=== PATIENT | male | born 1975 | race Caucasian/White ===

== ENCOUNTER 2020-04-09 13:03 | Emergency (ER) | payer OTHER, SELFPAY ==
[2020-04-09 13:39] VITALS: BP 136/80; PULSE 67; RESP 18; TEMP 36.7; O2SAT 98; BMI 39.5
--- NOTE | 2020-04-09 13:46 | HMH.EDUTC ---
[facility] Disposition Clinical Impression: Exposure to COVID-19 virus Disposition: Home, Self-Care Condition on Discharge: Good Instructions: Preventing the Spread of Coronavirus Discharge Instructions Additional Instructions: Drink plenty of fluids. Take tylenol for pain or fever. Return if you begin to have difficulty breathing. Follow up with your regular doctor. GO TO THE ER FOR ANY WORSENING SYMPTOMS Referrals: Alice Calix APRN [Primary Care Provider] - Forms: Work/School Release Medical Decision Making - Medical Records Medical records reviewed: No: I reviewed the patient's medical records. - Cecilio Inquiry Pt receiving controlled substance: No Vital Signs: 04/09/20 13:39 Temperature 98.1 F Temperature Source Oral Pulse Rate [Radial] 67 Respiratory Rate 18 Blood Pressure [Right Arm] 136/80 Blood Pressure Mean [Right Arm] 98 Blood Pressure Source [Right Arm] Automatic Cuff Blood Pressure Position [Right Arm] Sitting 02 Sat by Pulse Oximetry 98 Oxygen Delivery Method Room Air Orders (Tests/Meds): ORDERS Category Date Time Status Covid-19 Nasal PCR ([facility]) Routine Lab 04/09/20 13:[address] [facility] HPI - General Stated complaint: Covid exposure Time Seen by Provider: 04/09/20 13:47 Mode of Arrival: Ambulatory Source of Information: Patient Limitations: No Limitations Description of Symptoms (Recalled from Triage Doc. by RN): covid test HEENT Symptoms (Recalled from RN notes): No Resp Symptoms (Recalled from RN notes): No Skin Symptoms (Recalled from RN notes): No MS Symptoms (Recalled from RN notes): No Functional Status (Recalled from RN notes): wnl - History of Present Illness Provider Complaint: His daughter tested positive for covid yesterday. He needs to be tested. He denies any symptoms so far. - Related Data Home Medications Medication Instructions Recorded Confirmed Amlodipine Besylate 10 mg PO DAILY 07/11/19 07/13/19 Losartan Potassium 100 mg PO DAILY 07/11/19 07/13/19 Pravastatin Sodium [Pravachol 40mg 40 mg PO HS 07/11/19 07/13/19 Tablet] carvediloL [Carvedilol 25mg Tab] 25 mg PO DAILY 07/11/19 07/13/19 hydroCHLOROthiazide 12.5 mg PO BID 07/11/19 07/13/19 [Hydrochlorothiazide 12.5mg Tab] Previous Rx's Medication Instructions Recorded Hydrocod/Acet 5/325 mg [Dickens 1 tab PO Q6HP PRN #8 tab 07/11/19 5/325mg tablet] Allergies Allergy/AdvReac Type Severity Reaction Status Date / Time No Known Allergies Allergy Verified 07/13/19 10:54 - Worker's Comp Is this a Worker's Comp case?: No [facility] History - Hepatitis A Screen Drug use history?: No High risk sexual behaviors?: No History of sexually transmitted infection?: No Currently employed?: No Childcare worker?: No Do you have indoor plumbing?: Yes Do you have electricity?: Yes Attestation statement:: This patient has been screened for Hepatitis A risk factors. I have reviewed the patient's past medical history: Yes Medical History: Reports:: Hyperlipidemia, Hypertension, Kidney Stones Denies:: Diabetes Mellitus Type 1, Diabetes Mellitus Type 2 Laterality Cases: Bilateral: Tonsillectomy Amputation: No Fractures: No Comment: vasectomy - Social History Smoking Status: Never smoker Alcohol Intake: never Substance Use Type: denies use Occupational Status: employed Housing: house Household Members: family ROS Obtained: Yes All systems reviewed & no additional complaints - Constitutional Constitutional: Reports system reviewed and no additional complaints, except as docu - Eyes Eyes: Reports system reviewed and no additional complaints, except as docu - ENT Ears, Nose, Mouth, and Throat: Reports system reviewed and no additional complaints, except as docu - Cardiovascular Cardiovascular: Reports system reviewed and no additional complaints, except as docu - Respiratory Respiratory: Yes system reviewed and no additional complaints, except as
[2020-04-09 14:09] VITALS: BP 136/80; PULSE 67; RESP 18; TEMP 36.7; O2SAT 98
== END 2020-04-09 14:10 | disposition home or self-care (01) ==
PROVIDERS: Emergency Provider Nurse Practitioner Family; PCP Nurse Practitioner
DX: Z20.828 Contact with and (suspected) exposure to other viral communicable diseases (principal)
CPT/HCPCS: 99201; U0003

== ENCOUNTER → 2021-05-21 19:41 | Outpatient (CLI) | payer OTHER, SELFPAY | PROVIDERS: Visit Provider Nurse Practitioner Family | DX: Z20.822 Contact with and (suspected) exposure to COVID-19 (principal); J02.9 Acute pharyngitis, unspecified | CPT/HCPCS: C9803; U0003; U0005 ==

== ENCOUNTER → 2022-08-24 16:59 | Outpatient (CLI) | payer OTHER, SELFPAY ==
[2022-08-24 17:23] LABS: Alanine Aminotransferase 35 U/L (12-78); Albumin Level 4.3 g/dl (3.5-5.0); Albumin/Globulin Ratio 1.4 (1.1-1.8); Alkaline Phosphatase 68 U/L (38-126); Anion Gap 12.8 mEq/L (5-15); Aspartate Amino Transferase 30 U/L (17-59); Bilirubin,Total 1.2 mg/dl (0.2-1.3); Blood Urea Nitrogen 13 mg/dl (9-20); Calcium 8.7 mg/dl (8.4-10.2); Carbon Dioxide 25 mmol/L (22.0-30.0); Chloride 106 mmol/L (98-107); Chol/HDL Ratio 3.7 (1-3.5); Cholesterol 115 mg/dl (140-200); Estimated Glomerular Filt Rate 90 ml/min (>60); GFR (African American) 109 ML/MIN (>60); Glucose 89 mg/dl (74-100); HDL Cholesterol 31 mg/dl (40-60); Potassium 3.8 mmoL/L (3.5-5.1); Sodium 140 mmol/L (136-145); Total Protein,Serum 7.3 g/dl (6.3-8.2); Triglycerides 100 mg/dl (30-150); VLDL Cholesterol 20 mg/dL (0-40)
[2022-08-24 17:31] LABS: Hemoglobin A1C 4.7 % (4.0-6.0)
[2022-08-24 17:34] LABS: Direct LDL Cholesterol 70.97 mg/dL (100-129)
== END ==
PROVIDERS: PCP Family Medicine; Visit Provider Family Medicine
DX: E78.5 Hyperlipidemia, unspecified (principal); I10 Essential (primary) hypertension; R73.9 Hyperglycemia, unspecified
CPT/HCPCS: 80053; 80061; 83036

== ENCOUNTER → 2022-10-09 12:10 | Outpatient (CLI) | payer OTHER, SELFPAY ==
[2022-10-09 16:25] LABS: Basophils % 0.6 % (0.1-2.0); Eosinophils # 0.1 K/mm3 (0.0-0.4); Hematocrit 47.5 % (42.0-52.0); Lymphocytes # 2.5 K/mm3 (0.7-4.5); Mean Corpuscular HGB Conc 33.8 g/dL (31.8-35.4); Mean Corpuscular Hemoglobin 32.4 pg (27.0-31.2); Mean Platelet Volume 9.1 fl (7.4-10.4); Monocytes # 0.5 K/mm3 (0.1-1.0); Monocytes % 7.3 % (1.7-9.3); Neutrophils # 3.3 K/mm3 (1.8-7.8); Neutrophils % 51.1 % (37.0-80.0); Platelet Count 212 K/mm3 (142-424); Red Blood Count 4.95 M/mm3 (4.60-6.20); Red Cell Distribution Width 13.5 % (11.5-17.5); White Blood Count 6.4 K/mm3 (4.8-10.8)
[2022-10-09 17:04] LABS: Thyroid Stimulating Hormone 2.05 uIU/mL (0.465-4.68)
== END ==
PROVIDERS: Visit Provider Nurse Practitioner Family
DX: I10 Essential (primary) hypertension (principal); R42 Dizziness and giddiness
CPT/HCPCS: 84443; 85025

== ENCOUNTER 2024-04-07 09:26 | Outpatient (CLI) | payer OTHER, SELFPAY ==
[2024-04-07 16:52] LABS: Basophils # 0.1 K/mm3 (0-0.2); Basophils % 1.2 % (0.1-2.0); Eosinophils # 0.3 K/mm3 (0.0-0.4); Eosinophils % 4.7 % (0.1-12.0); Hematocrit 48.6 % (42.0-52.0); Lymphocytes # 2.7 K/mm3 (0.7-4.5); Lymphocytes % 42.7 % (10-50); Mean Corpuscular Hemoglobin 32.2 pg (27.0-31.2); Mean Corpuscular Volume 91.9 fl (80-94); Mean Platelet Volume 8.3 fl (7.4-10.4); Monocytes # 0.5 K/mm3 (0.1-1.0); Monocytes % 7.6 % (1.7-9.3); Neutrophils # 2.8 K/mm3 (1.8-7.8); Neutrophils % 43.9 % (37.0-80.0); Platelet Count 212 K/mm3 (142-424); Red Blood Count 5.28 M/mm3 (4.60-6.20); Red Cell Distribution Width 13.5 % (11.5-17.5); White Blood Count 6.3 K/mm3 (4.8-10.8)
[2024-04-07 17:06] LABS: Albumin Level 4.4 g/dl (3.5-5.0); Chloride 103 mmol/L (98-107); Sodium 139 mmol/L (136-145)
[2024-04-07 17:09] LABS: Alanine Aminotransferase 56 U/L (12-78); Albumin/Globulin Ratio 1.4 (1.1-1.8); Alkaline Phosphatase 57 U/L (38-126); Aspartate Amino Transferase 47 U/L (17-59); Bilirubin,Total 1.1 mg/dl (0.2-1.3); Blood Urea Nitrogen 19 mg/dl (9-20); Calcium 8.9 mg/dl (8.4-10.2); Carbon Dioxide 24 mmol/L (22.0-30.0); Cholesterol 169 mg/dl (140-200); Estimated Glomerular Filt Rate 89 ml/min (>60); GFR (African American) 108 ML/MIN (>60); Globulin 3.2 g/dL (1.3-3.2); Glucose 74 mg/dl (74-100); Total Protein,Serum 7.6 g/dl (6.3-8.2); Triglycerides 160 mg/dl (30-150); VLDL Cholesterol 32 mg/dL (0-40)
[2024-04-07 17:10] LABS: Chol/HDL Ratio 4.3 (1-3.5); HDL Cholesterol 39 mg/dl (40-60)
[2024-04-07 17:21] LABS: Direct LDL Cholesterol 102.79 mg/dL (100-129)
[2024-04-07 17:23] LABS: 25-OH Vitamin D, Total 19.6 ng/mL (30-100)
[2024-04-07 17:58] LABS: Thyroid Stimulating Hormone 2.66 uIU/mL (0.465-4.68)
[2024-04-07 18:16] LABS: HIV (1&2) Antibody Rapid NONREACTIVE (NONREACTIVE)
[2024-04-08 11:52] LABS: HCV Ab Non Reactive (Non Reactive)
== END 2024-04-07 23:59 | disposition home or self-care (01) ==
LOC: LAB.DROPOF 04-10 10:21
PROVIDERS: PCP Family Medicine; Visit Provider Family Medicine
DX: R53.83 Other fatigue (principal); I10 Essential (primary) hypertension; E78.5 Hyperlipidemia, unspecified; Z12.5 Encounter for screening for malignant neoplasm of prostate
CPT/HCPCS: 80050; 80053; 80061; 82306; 84443; 85025; 86803; 87389; G0103

== ENCOUNTER 2025-02-19 10:48 | Outpatient (CLI) | payer OTHER, SELFPAY ==
--- NOTE | 2025-02-19 10:52 | XR_ITS ---
FINAL REPORT CLINICAL HISTORY: right shoulder and arm pain FINDINGS: Two views of the right humerus were obtained. There is no prior exam for comparison. There is no acute fracture or dislocation. The joint spaces are well preserved. There is no acute soft tissue abnormality. IMPRESSION: No acute abnormality identified. Reviewed, Interpreted and Dictated by Herb Handley MD Transcribed by Rossi Marino Authenticated and [facility]
--- NOTE | 2025-02-19 10:52 | XR_ITS ---
FINAL REPORT CLINICAL HISTORY: right shoulder and arm pain COMPARISON: None FINDINGS: RIGHT SHOULDER Three views demonstrate no acute fracture or dislocation. The visualized joint spaces are normally aligned. The soft tissues are unremarkable. IMPRESSION: No acute process. Reviewed, Interpreted and Dictated by Herb Handley MD Transcribed by Rossi Marino Authenticated and [facility]
--- OUTSIDE RECORDS SUMMARY | 2025-02-19 10:53 | XMS_ITS | Clinical Summary ---
Author Organization [facility] Address [address] [place] [address] Care Team Providers Care Emotional Disabilities Teacher Name Role Phone Darrian Azul MD Primary Care Provider [phone] Allergies No known active allergies Medications pravastatin (PRAVACHOL) 40 MG tablet 10/11/2022 Active losartan (COZAAR) 100 MG tablet 10/11/2022 Active hydroCHLOROthiaz dilshad (HYDRODIURIL) 12.5 MG tablet 10/11/2022 Acti ve carvedilol (COREG) 12.5 MG tablet Take 1 tablet by mouth 2 (Two) Times a Day With Meals. 11/29/2022 Active Active Problems Problem Noted Date Diagnosed Date Class 1 obesity due to exces s calories with serious comorbidity and body mass index (BMI) of 34.0 to 34.9 in adult 12/03/2022 Assessment & Plan (06/10/2023 10:17 AM EST): BMI is 38.8. Noted that he has had a 30 pound weight gain over the last 6 months. He reports that he had been following lifestyle modifications but over the holidays he had stopped this. He is willing to restart his lifestyle modifications. He is encouraged weight loss as it pertains to sleep apnea. We will reevaluate in 3 months. Assessment & Plan (12/03/2022 12:28 PM EDT): BMI is 34. He has had a weight loss of 30 pounds over the last 1 year. He is applauded for weight loss. He is encouraged to continue his current weight loss plan. Suspect that with his weight loss he may need to lower BiPAP pressures. ZAFAR (obstructive sleep apnea) 10/15/2022 Assessment & Plan (09/09/2023 9:09 AM EDT): AHI is 42. This is severe sleep apnea. He is on BiPAP therapy. At his last visit he had a pressure adjustment. Current pressures are BiPAP 21/17 pressure support of 4. Download reviewed and his AHI is improved to 6. This is good control and with very mildly elevated AHI. His compliance is excellent. He reports that his airflow is comfortable. He reports the higher pressures such as 24/18 are not as comfortable. He follows his AHI on the uri. And reports improvement better. He denies any excessive daytime sleepiness. He did have a correction of his sleep apnea in the sleep lab. Plan: Continue at current pressures He has a prescription for his PAP supplies with his DME Follow-up in May for his annual ZAFAR visit or sooner for any ZAFAR PAP concerns or if he needs a download for paperwork for his work physical. Assessment & Plan (06/10/2023 10:09 AM EST): Baseline AHI is 42. This is severe sleep apnea. He is on BiPAP therapy. He has completed an in lab titration that does not show central sleep apneas. He has full correction in the sleep lab with REM sleep and he titrated to BiPAP 25/21. He has been on higher pressures in the past such as 24/18 and he feels like this pressure was stronger and harder to tolerate. He is on BiPAP 20/14 and download is reviewed with mildly elevated control with an AHI of 8.6 and his compliance is excellent. He denies any excessive daytime sleepiness. No sleepiness when he is driving or working. Plan: -Adjust BiPAP to 21/17 pressure support of 4 as this pressure did correct his sleep apnea in the sleep lab with REM sleep. -He also received a new mask style sleep lab and reports that he feels like this mask style is a better fit. It is still a fullface mask. -Follow-up in 3 months to reevaluate AHI airflow comfort and mask fit. Considerations if AHI remains elevated is to again adjust pressure according to his in lab BiPAP titration he had full correction on BiPAP 21/17, 24/20 and 25/21. Assessment & Plan (01/11/2023 5:26 PM EDT): Baseline AHI is 42. This is severe sleep apnea. He is on BiPAP therapy. Download was reviewed with excellent compliance but moderately elevated control. AHI on download is 14. ResMed download showing AHI index central 9 obstructive 4. AHI on last download Was 15. His last visit his BiPAP pressure 24/18 was adjusted down to 20/14 PS 4 -he had lost 30 pounds over the last year. Today he reports that the airflow is comfortable and he has not noticed much change with the pressure adjustment. He continues to have no excessive daytime sleepiness. He is not napping. AHI remains elevated at 14. I decreased the pressures as I am concerned that the elevated BiPAP pressures may be causing some complex sleep. Complex sleep would explain his elevated AHI on download. Plan: -1.Decrease pressures on BiPAP . - 2.In lab titration study for further evaluation of possible complex sleep apnea. 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 -3.We will follow-up after his in lab titration study and again review a download on the decreased pressure. Assessment & Plan (12/03/2022 12:25 PM EDT): Baseline AHI is 42. This is severe sleep apnea. He is on BiPAP therapy 24/18 pressure support of 4 on a ResMed device that is less than a-year-old and functioning well. Download is reviewed and interpreted showing excellent compliance but suboptimal control with AHI of 15 this is moderately suboptimal. At this time he reports no excessive daytime sleepiness. He is not napping or dozing. A titration study was requested but at this time has been denied per insurance. I suspect that with his 30 pound weight loss that his BiPAP pressures may be higher than needed. Plan to decrease pressures and reevaluate in 1 month. Prescription to DME to adjust BiPAP pressures to 20/14 PS of 4 and PAP supplies. Follow-up in 1 month with a download. Patient is also encouraged to continue to follow AHI on his uri on his phone. If he feels the airflow is insufficient, feels smothering or his AHI elevates then he should return to the clinic sooner and we will plan an in lab titration study. Hypercholesteremia Assessment & Plan (12/03/2022 12:26 PM EDT): He reports that he is compliant with his statin. He reports that his last fasting lipids labs was well controlled. Hypertension Assessment & Plan (12/03/2022 12:26 PM EDT): Blood pressure is well controlled at today's visit. He is encouraged to continue current blood pressure medications, encouraged to follow-up with prescribing provider and he is also encouraged to continue PAP therapy as untreated sleep apnea may potentiate hypertension. Resolved Problems Problem Noted Date Diagnosed Date Resolved Date Complex sleep apnea syndrome 01/11/2023 06/10/2023 Assessment & Plan (01/11/2023 5:32 PM EDT): AHI on download device is 14. Last download AHI was 15. AHI is mild to moderately elevated.Download from BiPAP device is reading 10 central sleep apneas per 1 hour. I have decreased his pressure as he has had 30 pounds of weight loss this last year. But his AHI is only improved from 15 down to 14 per 1 hour. This is concerning for complex sleep apnea. His last in lab study was a split study in 2012. On that study he failed CPAP. He was titrated to a BiPAP. He has not had an in lab study in nearly 10 years. The study 10 years ago was a split-night study and was not a full night titration. I have recommended an in-lab full night titration study for further evaluation of central sleep apnea as he is download from his BiPAP device is reading central sleep apneas 10 per 1 hour. Concerning for complex sleep apnea. Plan: In lab titration study on BiPAP and if central sleep apneas develop then consideration to move to a BiPAP ST titration. We will follow-up after titration study to review the results. Family History Medical History Relation Name Comments No Known Problems Father Heart failure Mother Relation Name Status Comments Father Mother (Age 51) Social History Tobacco Use Types Packs/Day Years Used Date Smoking Tobacco: Never Passive Smoke Exposure: Past Smokeless Tobacco: Never Tobacco Cessation:Counseling Given: Not Answered Alcohol Use Standard Drinks/Week Comments Never 0 (1 standard drink = 0.6 oz pur e alcohol) Abuse Screen Answer Date Recorded Unsafe at Home or Work/School Not on file Feels Threatened by Someone? Not on file Does Anyone Keep You from Co ntacting Others or Doint Things Outside the Home? Not on file 03/05/2023 Physical Sign of Abuse Present Not on file 1 Housing Stability Answer Date Recorded Current Living Arrangements Not on file 02/21 Potentially Unsafe Housing Conditions Not on juno e 03/05/2023 Family and Community Support Answer Teddy e Recorded Help with Day-to-Day Activities Not on file 03/05/2023 Lonely or Isolated Not on file 03/05/2023 Employment Answer Date Recorded Do you want help finding or keeping work or a safia b? Not on file 03/05/2023 Disabilities Answer Date Recorded Concentrating, Remembering, or Making Decisions Difficulty Not on file 03/05/2023 Doing Errands Independently Difficulty Not on fi le 03/05/2023 Education Answer Date Recorded Help with school or training? Not on file Preferred Language Not on file 03/05/2023 Sex and Gender Information Value Date Recorded Sex Assigned at Not on file Legal Sex Male 12:59 PM EST Gender Identity Not on file Sexual Orientation Not on file Last Filed Vital Signs Vital Sign Reading Time Taken Comments Blood Pressure 138/84 09/09/2023 8:27 AM EDT Pulse 65 09/09/2023 8:27 AM EDT Temperature - - Respiratory Rate - - Oxygen Saturation 98% 09/09/2023 8:27 AM EDT Inhaled Oxygen Concentration - - Weight 121 kg (266 lb) 09/09/2023 8:27 AM EDT Height 175.3 cm (5' 9 ) 09/09/2023 8:27 AM EDT Body Mass Index 39.28 09/09/2023 8:27 AM EDT Plan of Treatment Health Maintenance Due Date Last Done Comments LIPID PANEL 1973 TDAP/TD VACCINES (1 - Tdap) 1992 COLOGUARD 2018 COLON CANCER SCREENING 5 YEAR SIGMOIDOSCOPY 2018 COLONOSCOPY 2018 [address] CANCER SCREENING 2018 CT COLONOGRAPHY 2018 FECAL OCCULT BLOOD TEST 2018 FIT Testing (1 year) 2018 ANNUAL PHYSICAL 10/14/2022 HEPATITIS C SCREENING 10/14/2022 Pneumococcal Vaccine 50+ (1 of 1 - PCV) 08/18/2023 ZOSTER VACCINE (1 of 2) 08/18/2023 INFLUENZA VACCINE 12/22/2024 Insurance [facility] Care Teams Emotional Disabilities Teacher Relationship Specialty Start Date End Date Darrian Azul MD [address] [place] [address] PCP - General Family Medicine 10/14/22
--- OUTSIDE RECORDS SUMMARY | 2025-02-19 10:53 | XMS_ITS | Clinical Summary ---
Author Organization [facility] Address [address] [place] [address] Phone Care Team Providers Care Heating And Ventilating Tender Name Role Phone Unavailable Primary Care Provider Unavailabl e Allergies No known active allergies Medications lisinopril (PRINIVIL;ZESTRIL ) 20 mgIndications:Uns pecified essential hypertension Take 1 Tab by mouth daily. 30 Tab 5 10/24/2011 Active Active Problems Problem Noted Date Diagnosed Date Dietary counseling 10/24/2011 Unspecified essential hypertension Unspecified sleep apnea Immunizations Immunization Administration Dates Next Due Influenza Vaccine, Unspecified Formulation 02/18 Surgical History Surgery Date Site/Laterality Comments WISDOM TOOTH EXTRACTION VASECTOMY UVULOPALATOPHARYGOPLASTY Social History Tobacco Use Types Packs/Day Years Used Date Smoking Tobacco: Never Smokeless Tobacco: Never Alcohol Use Standard Drinks/Week Comments No 0 (1 standard drink = 0.6 oz pur e alcohol) Sex and Gender Information Value Date Recorded Sex Assigned at Not on file Legal Sex Male 4:29 PM EDT Gender Identity Not on file Sexual Orientation Not on file Last Filed Vital Signs Vital Sign Reading Time Taken Comments Blood Pressure 120/90 10/24/2011 8:13 AM EDT Pulse 92 10/24/2011 8:13 AM EDT Temperature 36.6 C (97.9 F) 10/24/2011 8:13 AM EDT Respiratory Rate - - Oxygen Saturation 99% 02/18/2011 8:14 AM EDT Inhaled Oxygen Concentration - - Weight 108.3 kg (238 lb 12.8 oz) 10/24/2011 8:13 AM EDT Height 177.8 cm (5' 10 ) 10/24/2011 8:13 AM EDT Body Mass Index 34.26 10/24/2011 8:13 AM EDT Plan of Treatment Health Maintenance Due Date Last Done Comments Annual Wellness Exam 1976 DTaP/TDaP/Td (1 - Tdap) 1992 Hepatitis B Vaccine (1 of 3 - 19+ 3-dose series) 1992 Cologuard 2018 Colon Cancer Screening 2018 Colonoscopy 2018 FIT 2018 Sigmoidoscopy 2018 Virtual Colonography 2018 Pneumococcal Vaccine 50+ (1 of 1 - PCV) 08/18/2023 Zoster (1 of 2) 08/18/2023 COVID-19 Vaccine (1 - 2023-2 5 season) 2025 Influenza Vaccine (#1) 2025 02/18/2011 Meningococcal B Vaccine Aged Out No l onger eligible based on patient's age to complete this topic Goals Goal Patient Goal Type Associated Problems Recent Progress Patient-Stated? Author Weight < 200 lb (90.719 kg) Weight 238 lb 12.8 oz (108.3 kg)(10/24/2011 8:13 AM EDT) No Richard Waggoner MD Insurance [employer] P[employer] Member Subscriber Plan / Payer (Ef fective 2011-Present) Name:Mando Mckeon Relation to Subscriber:Self Name:Mando Mckeon Payer ID:[id number] (NAIC) Type:Not on file Address: [address] [place] [id number]
== END 2025-02-19 23:59 | disposition home or self-care (01) ==
LOC: RAD 10:48
PROVIDERS: PCP Family Medicine; Visit Provider Nurse Practitioner Family
DX: M25.511 Pain in right shoulder (principal); M79.601 Pain in right arm
CPT/HCPCS: 73030; 73060